=== PATIENT | female | born 1995 | race American Indian/Alaskan Native ===

== ENCOUNTER 2018-09-07 16:19 | Emergency (ER) | payer OTHER ==
[2018-09-07 16:29] VITALS: BP 126/75
--- NOTE | 2018-09-07 16:29 | Event Note ---
ED Screening Note ED Screening Note: pt presents with "a knot in her stomach" that began three days ago no N/V only one episode of diarrhea this morning no urinary sx no PMHx no allergies to meds LNMP: august 30 This initial assessment/diagnostic orders/clinical plan/treatment(s) is/are subject to change based on patients health status, clinical progression and re- assessment by fellow clinical providers in the ED. Further treatment and workup at subsequent clinical providers discretion. Patient/guardian urged not to elope from the ED as their condition may be serious if not clinically assessed and managed. Initial orders include: UA, urine preg, labs, XR abd
[2018-09-07 16:59] LABS: Basophils % (Auto) 0.4 % (0.0-1.8); Eosinophils # (Auto) 0.2 K/mm3 (0.0-0.4); Eosinophils % (Auto) 2.4 % (0.0-4.3); Hemoglobin 12.1 gm/dl (10.1-14.3); Lymphocytes # (Auto) 1.6 K/mm3 (1.2-5.4); Lymphocytes % (Auto) 21.1 % (13.4-35.0); Mean Corpuscular HGB Conc 33 % (30-34); Mean Corpuscular Volume 80 fl (79-97); Monocytes # (Auto) 0.4 K/mm3 (0.0-0.8); Monocytes % (Auto) 4.8 % (0.0-7.3); Platelet Count 274 K/mm3 (140-440); Red Blood Count 4.65 M/mm3 (3.65-5.03)
[2018-09-07 17:20] LABS: Bilirubin,Urine NEG (Negative); Blood,Urine NEG (Negative); Color,Urine Yellow (Yellow); Mucus,Urine FEW /HPF; Protein,Urine <15 mg/dL mg/dL (Negative)
[2018-09-07 17:29] LABS: HCG Qualitative,Urine Negative (Negative)
[2018-09-07 17:43] LABS: Alanine Aminotransferase 13 units/L (7-56); Albumin 4.4 g/dL (3.9-5); BUN/Creatinine Ratio 11; Blood Urea Nitrogen 8 mg/dL (7-17); Calcium 9.3 mg/dL (8.4-10.2); Hemolysis Index 5
--- NOTE | 2018-09-07 18:40 | XRay Report ---
ABDOMEN 3 VIEW(S) INDICATION / CLINICAL INFORMATION: abd discomfort. Abdominal pain and diarrhea COMPARISON: None available. FINDINGS: TUBES / LINES: None. BOWEL GAS PATTERN: No significant abnormality. FREE AIR / EXTRALUMINAL GAS: None seen. ADDITIONAL FINDINGS: Umbilical piercing is noted. IMPRESSION: 1. No significant abnormality. Signer Name: Yariel Glasgow MD Signed: 09/07/2018 6:35 PM Workstation Name: [id number]
[2018-09-07] MEDS ORDERED: ZOFRAN ODT PO ONE (19:50)
[2018-09-07] MEDS ORDERED: IBUPROFEN PO ONE (19:50)
--- NOTE | 2018-09-07 20:29 | Emergency Department Report ---
ED Abdominal Pain HPI - General Chief Complaint: Abdominal Pain Stated Complaint: ABDOMINAL PAIN Time Seen by Provider: 09/07/18 16:27 Source: patient Mode of arrival: Ambulatory Limitations: No Limitations - History of Present Illness Initial Comments: Pt presents with "a knot in her stomach" that began three days ago no N/V only one episode of diarrhea this morning no urinary sx no PMHx no allergies to meds LNMP: august 30 pt is tolerating po intake no n/v no fever no chills Complaint: abdominal pain Onset/Timin -: week(s) Location: LUQ Radiation: LUQ Migration to: LUQ Severity: moderate Severity scale (0 -10): 6 Quality: aching, burning Consistency: intermittent Improves With: nothing Worsens With: nothing Associated Symptoms: nausea. denies: vomiting, diarrhea, fever, chills, constipation, dysuria, melena - Related Data LMP Date: 08/30/18 Previous Rx's Medication Instructions Recorded Last Taken Type Famotidine [Pepcid] 20 mg PO BID #60 tablet 09/07/18 Unknown Rx Ibuprofen [Motrin 800 MG tab] 800 mg PO Q8HR PRN #30 tablet 09/07/18 Unknown Rx Allergies Allergy/AdvReac Type Severity Reaction Status Date / Time No Known Allergies Allergy Unverified 09/07/18 16:20 ED Review of Systems ROS: Stated complaint: ABDOMINAL PAIN Other details as noted in HPI Constitutional: denies: chills, fever Eyes: denies: eye pain, eye discharge, vision change ENT: denies: ear pain, throat pain Respiratory: denies: cough, shortness of breath, wheezing Cardiovascular: denies: chest pain, palpitations Endocrine: no symptoms reported Gastrointestinal: abdominal pain, nausea. denies: vomiting, diarrhea, constipation, hematemesis, melena, hematochezia Genitourinary: denies: urgency, dysuria, discharge Musculoskeletal: denies: back pain, joint swelling, arthralgia Skin: denies: rash, lesions Neurological: denies: headache, weakness, paresthesias Psychiatric: denies: anxiety, depression Hematological/Lymphatic: denies: easy bleeding, easy bruising ED Past Medical Hx - Past Medical History Previous Medical History?: No - Surgical History Past Surgical History?: No - Social History Smoking Status: Current Every Day Smoker - Medications Home Medications: Home Medications Medication Instructions Recorded Confirmed Last Taken Type Famotidine [Pepcid] 20 mg PO BID #60 tablet 09/07/18 Unknown Rx Ibuprofen [Motrin 800 MG tab] 800 mg PO Q8HR PRN #30 tablet 09/07/18 Unknown Rx ED Physical Exam - General Limitations: No Limitations General appearance: alert, in no apparent distress - Head Head exam: Present: atraumatic, normocephalic - Eye Eye exam: Present: normal appearance, PERRL, EOMI Pupils: Present: normal accommodation - ENT ENT exam: Present: normal orophraynx, mucous membranes moist - Neck Neck exam: Present: normal inspection, full ROM. Absent: tenderness, lymphadenopathy - Respiratory Respiratory exam: Present: normal lung sounds bilaterally. Absent: respiratory distress, wheezes, stridor, chest wall tenderness - Cardiovascular Cardiovascular Exam: Present: regular rate, normal rhythm, normal heart sounds. Absent: systolic murmur, diastolic murmur, rubs, gallop - GI/Abdominal GI/Abdominal exam: Present: soft, normal bowel sounds. Absent: distended, tenderness, guarding, rebound, rigid, bruit, hernia - Rectal Rectal exam: Present: deferred - External exam: Present: other (defered) - Extremities Exam Extremities exam: Present: normal inspection, full ROM, normal capillary refill. Absent: tenderness - Back Exam Back exam: Present: normal inspection, full ROM. Absent: tenderness, CVA tenderness (R), CVA tenderness (L), rash noted - Neurological Exam Neurological exam: Present: alert, oriented X3, CN II-XII intact, normal gait, reflexes normal - Psychiatric Psychiatric exam: Present: normal affect, normal mood - Skin Skin exam: Present: warm, dry, intact, normal color. Absent: rash ED Course Vital Signs 09/07/18 16:27 Temperature 98.6 F Pulse Rate 87 Respiratory 16 Rate Blood Pressure 126/75 O2 Sat by Pulse 100 Oximetry ED Medical Decision Making - Lab Data Result diagrams: 09/07/18 16:42 09/07/18 16:42 Labs 09/07/18 09/07/18 09/07/18 16:40 16:42 16:42 WBC 7.6 RBC 4.65 Hgb 12.1 Hct 37.0 MCV 80 MCH 26 L MCHC 33 RDW 15.0 Plt Count 274 Lymph % (Auto) 21.1 [place] % (Auto) 4.8 Eos % (Auto) 2.4 Baso % (Auto) 0.4 Lymph # 1.6 [place] # 0.4 Eos # 0.2 Baso # 0.0 Seg Neutrophils % 71.3 H Seg Neutrophils # 5.4 Sodium 142 Potassium 4.2 Chloride 103.1 Carbon Dioxide 28 Anion Gap 15 BUN 8 Creatinine 0.7 Estimated GFR > 60 BUN/Creatinine Ratio 11 Glucose 108 H Calcium 9.3 Total Bilirubin 0.30 AST 18 ALT 13 Alkaline Phosphatase 70 Total Protein 7.3 Albumin 4.4 Albumin/Globulin Ratio 1.5 Lipase 23 Urine Color Yellow Urine Turbidity Clear Urine pH 6.0 Ur Specific [place] 1.019 Urine Protein <15 mg/dl Urine Glucose (UA) Neg Urine Ketones Neg Urine Blood Neg Urine Nitrite Neg Urine Bilirubin Neg Urine Urobilinogen 2.0 Ur Leukocyte Esterase Tr Urine WBC (Auto) 5.0 Urine RBC (Auto) 2.0 U Epithel Cells (Auto) 4.0 Urine Mucus Few Urine HCG, Qual Negative - Radiology Data Radiology results: report reviewed, image reviewed Ordering Physician: ALEXANDER BOSCH Date of Service: 09/07/18 Procedure(s): XR abdomen 2V Accession Number(s): [id number] cc: ALEXANDER BOSCH Fluoro Time In Minutes: ABDOMEN 3 VIEW(S) INDICATION / CLINICAL INFORMATION: abd discomfort. Abdominal pain and diarrhea COMPARISON: None available. FINDINGS: TUBES / LINES: None. BOWEL GAS PATTERN: No significant abnormality. FREE AIR / EXTRALUMINAL GAS: None seen. ADDITIONAL FINDINGS: Umbilical piercing is noted. IMPRESSION: 1. No significant abnormality. Signer Name: Yariel Glasgow MD Signed: 09/07/2018 6:35 PM Workstation Name: [id number] Transcribed By: TL Dictated By: Yariel Glasgow MD Electronically Authenticated By: Yariel Glasgow MD Signed Date/Time: 09/07/181834 DD/ 34 TD/TT: - Medical Decision Making abd normal labs normal pt is tolerating po intake there is no fever no chills no n/v plan pepcid, ibuprofen follow up with pcp. Critical care attestation.: If time is entered above; I have spent that time in minutes in the direct care of this critically ill patient, excluding procedure time. ED Disposition Clinical Impression: Abdominal pain Qualifiers: Abdominal location: generalized Qualified Code(s): R10.84 - Generalized abdominal pain Disposition: TO HOME OR SELFCARE Is pt being admited?: No Does the pt Need Aspirin: No Condition: Stable Instructions: Abdominal Pain (ED), Diet for Ulcers and Gastritis (ED) Prescriptions: Ibuprofen [Motrin 800 MG tab] 800 mg PO Q8HR PRN #30 tablet PRN Reason: pain Famotidine [Pepcid] 20 mg PO BID #60 tablet Referrals: JERMAIN HUNTER MD [Primary Care Provider] - 3-5 Days Forms: Work/School Release Form(ED)
== END 2018-09-07 20:30 | disposition home or self-care (01) ==
LOC: ED 16:19
DX: R10.84 Generalized abdominal pain (principal)
CPT/HCPCS: 36415; 74019; 80053; 81001; 81025; 83690; 85025; Q0162